=== PATIENT | male | born 1985 | race Caucasian/White ===

== ENCOUNTER 2022-04-06 05:46 | Emergency (ER) | payer MEDICAID ==
[~2022-04-06] VITALS: Ht 180.3 cm; Wt 81.8 kg
[~2022-04-06 05:46] MED LIST: FLOOS OT
[2022-04-06 05:51] VITALS: BP 133/85
--- NOTE | 2022-04-06 06:33 | NUR ---
DR PETERS SPEAKING WITH PT AT THIS TIME
[2022-04-06] MEDS ORDERED: LIDOcaine 1% W/epiNEPHrine 1:100,000 20ml vial SQ ONE (06:35)
== END 2022-04-06 09:35 | disposition home or self-care (01) ==
LOC: ER 05:47
DX: S63.111A Subluxation of metacarpophalangeal joint of right thumb, initial encounter (principal); X58.XXXA Exposure to other specified factors, initial encounter; Y93.89 Activity, other specified; Y92.89 Other specified places as the place of occurrence of the external cause; Y99.8 Other external cause status
CPT/HCPCS: 73130; 99283

== ENCOUNTER 2022-04-27 17:26 | Emergency (ER) | payer MEDICAID ==
[~2022-04-27] VITALS: Ht 180.3 cm; Wt 81.8 kg
[2022-04-27 17:35] VITALS: BP 114/85
[2022-04-27] MEDS ORDERED: TETanus/Pertussis (Acell)/Diphther VAC/PF (Tdap-Adult) 0.5ml syringe IMVAC ONE (17:35)
[2022-04-27] MEDS ORDERED: AMOX-117 PO (17:38)
== END 2022-04-27 17:45 ==
LOC: ER 17:26
DX: S41.132A Puncture wound without foreign body of left upper arm, initial encounter (principal); Z91.19 Patient's noncompliance with other medical treatment and regimen; W54.0XXA Bitten by dog, initial encounter; Z79.2 Long term (current) use of antibiotics; Z79.899 Other long term (current) drug therapy; Y93.89 Activity, other specified; Y92.89 Other specified places as the place of occurrence of the external cause; Y99.8 Other external cause status
CPT/HCPCS: 90471; 90715; 99283

== ENCOUNTER 2022-05-10 18:11 | Emergency (ER) | payer MEDICAID | END 2022-05-10 23:16 | disposition home or self-care (01) | LOC: ER 18:11 | DX: S69.90XA Unspecified injury of unspecified wrist, hand and finger(s), initial encounter (principal); Z53.21 Procedure and treatment not carried out due to patient leaving prior to being seen by health care provider; X58.XXXA Exposure to other specified factors, initial encounter; Y93.89 Activity, other specified; Y92.89 Other specified places as the place of occurrence of the external cause; Y99.8 Other external cause status ==

== ENCOUNTER 2022-10-18 17:36 | Emergency (ER) | payer MEDICAID ==
[~2022-10-18] VITALS: Ht 180.3 cm; Wt 79.5 kg
[2022-10-18 17:47] VITALS: BP 125/87
== END 2022-10-18 21:20 | disposition home or self-care (01) ==
LOC: ER 17:37
DX: Z48.89 Encounter for other specified surgical aftercare (principal); R10.9 Unspecified abdominal pain; Z98.890 Other specified postprocedural states; Z79.2 Long term (current) use of antibiotics
CPT/HCPCS: 99281; A6253

== ENCOUNTER 2023-05-10 21:51 | Emergency (ER) | payer MEDICAID ==
[~2023-05-10] VITALS: Ht 182.9 cm; Wt 84.1 kg
[2023-05-10 22:13] VITALS: BP 125/68
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
== END 2023-05-10 23:06 | disposition home or self-care (01) ==
LOC: ER 21:52
DX: T85.848A Pain due to other internal prosthetic devices, implants and grafts, initial encounter (principal); Z46.89 Encounter for fitting and adjustment of other specified devices
CPT/HCPCS: 99283; A4398; A6250

== ENCOUNTER 2023-07-05 12:30 | Inpatient (IN) | payer MEDICAID ==
[~2023-07-05] VITALS: Ht 182.9 cm; Wt 72.7 kg
[2023-07-05 15:20] LABS: BASOPHILS % (AUTO) 0.4 % (0-1); EOSINOPHILS # (AUTO) 0.1 X10'3 (0-0.9); EOSINOPHILS % (AUTO) 1.3 % (0-6); HEMATOCRIT 48.4 % (42.0-52.0); HEMOGLOBIN 15.8 g/dl (14.0-17.9); LYMPHOCYTES # (AUTO) 3.3 X10'3 (1.1-4.8); LYMPHOCYTES % (AUTO) 31.3 % (21-51); MEAN CORPUSCULAR HGB CONC 32.6 g/dL (33.0-36.5); MEAN CORPUSCULAR VOLUME 85.8 FL (78-98); MEAN PLATELET VOLUME 8.4 FL (7.4-10.4); MONOCYTES # (AUTO) 1.4 X10'3 (0-0.9); MONOCYTES % (AUTO) 13.3 % (2-12); NEUTROPHILS # (AUTO) 5.6 X10'3 (1.8-7.7); NEUTROPHILS % (AUTO) 53.7 % (42-75); PLATELET COUNT 288 X10'3 (140-440); RED BLOOD COUNT 5.64 X10'6 (4.70-6.10); RED CELL DISTRIBUTION WIDTH 16.1 % (11.5-14.5); WHITE BLOOD COUNT 10.5 X10'3 (4.5-11.0)
--- NOTE | 2023-07-05 15:45 | NUR ---
Pt continues to answer medical questions and does not move when physically assessing pt. When pts room left pt takes off BP cuff and pulse ox.
[2023-07-05] MEDS ORDERED: methadone 10mg tablet PO ONE (16:20)
--- NOTE | 2023-07-05 17:00 | NUR ---
Pt linen and clothing changed after skin cleansed. Colostomy appliance place on ostomy site.
[2023-07-05] MEDS ORDERED: HYDROcodone/acetaminophen 5mg/325mg tablet PO PRN (18:10)
[2023-07-05] MEDS ORDERED: ondansetron/PF 4mg/2ml inj IV PRN (18:10)
[2023-07-05] MEDS ORDERED: acetaminophen 650mg rectal suppository RC PRN (18:10)
[2023-07-05] MEDS ORDERED: mag hydrox/Alum hydrox/simeth 30ml oral suspension PO PRN (18:10)
[2023-07-05] MEDS ORDERED: acetaminophen 325mg tablet PO PRN ×2 (18:10)
[2023-07-05] MEDS ORDERED: HYDROmorphone/PF 0.2 MG/ML SYRINGE IV PRN (18:10)
[2023-07-05 18:54] LABS: ALANINE AMINOTRANSFERASE 26 U/L (12-78); ALBUMIN 3.5 G/DL (3.4-5.0); ALBUMIN/GLOBULIN RATIO 0.9 (1.1-1.5); ALKALINE PHOSPHATASE 101 IU/L (46-116); ANION GAP 7 (8-16); ASPARTATE AMINO TRANSFERASE 23 U/L (10-37); BLOOD UREA NITROGEN 22 MG/DL (7-18); BUN/CREATININE RATIO 20.2 (10.0-20.0); CHLORIDE 102 MMOL/L (99-107); CREATININE 1.09 MG/DL (0.60-1.10); GLUCOSE 74 MG/DL (70-104); POTASSIUM 3.4 MMOL/L (3.5-5.1); SODIUM 139 MMOL/L (135-145); TOTAL CARBON DIOXIDE 29.6 MMOL/L (24-32); TOTAL PROTEIN 7.5 G/DL (6.4-8.2); eCRCL 96 ML/MIN; eGFR 77 ML/MIN
[2023-07-05 19:02] LABS: THYROID STIMULATING HORMONE 1.76 ulU/ml (0.34-4.50)
[2023-07-05 19:14] LABS: ETHANOL < 10 MG/DL (<10)
[2023-07-05] MEDS: docusate sod 100mg capsule PO SCH (20:00)
--- NOTE | 2023-07-05 20:08 | NUR ---
DR HALL REPEATEDLY MADE AWARE BY DAY AND NOC NURSE THAT PT IS IN AFIB. NO NEW ORDERS
--- NOTE | 2023-07-05 22:05 | NUR ---
PER DR GARY, MARIA LUISA TO DELAY COLLECTION OF URINE SAMPLE UNTIL PT IS COOPERATIVE AND WILLING TO GIVE
[2023-07-05 23:15] VITALS: BP 113/69; PULSE 72; RESP 20; TEMP 98; O2SAT 99
--- NOTE | 2023-07-05 23:20 | NUR ---
PATIENT ADMITTED TO ROOM 4020A FROM ER FOR COLOSTOMY COMPLICATION, SUBSTANCE ABUSE AND ALOC.
[2023-07-05 23:55] VITALS: RESP 20; O2SAT 99
[2023-07-06 06:30] VITALS: BP 122/80; PULSE 117; RESP 16; TEMP 98.1; O2SAT 99
--- NOTE | 2023-07-06 06:30 | NUR ---
Problems reprioritized. Patient report given, questions answered & plan of care reviewed with LOUIS HUTCHINS.
[2023-07-06 06:53] LABS: BASOPHILS % (AUTO) 0.3 % (0-1); EOSINOPHILS # (AUTO) 0.2 X10'3 (0-0.9); EOSINOPHILS % (AUTO) 2.1 % (0-6); HEMATOCRIT 49.8 % (42.0-52.0); HEMOGLOBIN 16.7 g/dl (14.0-17.9); LYMPHOCYTES # (AUTO) 2.3 X10'3 (1.1-4.8); LYMPHOCYTES % (AUTO) 24.3 % (21-51); MEAN CORPUSCULAR HEMOGLOBIN 28.7 PG (27.0-31.0); MEAN CORPUSCULAR HGB CONC 33.5 g/dL (33.0-36.5); MEAN CORPUSCULAR VOLUME 85.5 FL (78-98); MEAN PLATELET VOLUME 8.9 FL (7.4-10.4); MONOCYTES # (AUTO) 0.9 X10'3 (0-0.9); MONOCYTES % (AUTO) 9.5 % (2-12); NEUTROPHILS # (AUTO) 5.9 X10'3 (1.8-7.7); NEUTROPHILS % (AUTO) 63.8 % (42-75); PLATELET COUNT 317 X10'3 (140-440); RED BLOOD COUNT 5.83 X10'6 (4.70-6.10); RED CELL DISTRIBUTION WIDTH 15.7 % (11.5-14.5); WHITE BLOOD COUNT 9.3 X10'3 (4.5-11.0)
[2023-07-06 07:06] LABS: ALBUMIN 3.4 G/DL (3.4-5.0); ANION GAP 8 (8-16); BILIRUBIN,TOTAL 1.1 MG/DL (0.1-1.0); BLOOD UREA NITROGEN 19 MG/DL (7-18); BUN/CREATININE RATIO 18.4 (10.0-20.0); CHLORIDE 101 MMOL/L (99-107); CREATININE 1.03 MG/DL (0.60-1.10); GLUCOSE 89 MG/DL (70-104); SODIUM 135 MMOL/L (135-145); TOTAL CARBON DIOXIDE 26.5 MMOL/L (24-32); TOTAL PROTEIN 7.5 G/DL (6.4-8.2); eCRCL 102 ML/MIN; eGFR 82 ML/MIN
[2023-07-06 07:07] LABS: ALANINE AMINOTRANSFERASE 30 U/L (12-78); ALBUMIN/GLOBULIN RATIO 0.8 (1.1-1.5); ALKALINE PHOSPHATASE 93 IU/L (46-116); ASPARTATE AMINO TRANSFERASE 29 U/L (10-37)
[2023-07-06 07:08] LABS: POTASSIUM 3.7 MMOL/L (3.5-5.1)
[2023-07-06 08:00] VITALS: RESP 16; O2SAT 99
[2023-07-06] MEDS: docusate sod 100mg capsule PO SCH ×2 (08:04→20:00)
[2023-07-06] MEDS: HYDROmorphone inj. 0.5 MG/0.5 ML DISP.SYRIN IV PRN ×4 (08:08→22:42)
[2023-07-06 10:00] VITALS: BP 127/86; PULSE 85; RESP 16; TEMP 97.4; O2SAT 100
[2023-07-06] MEDS: HYDROcodone/acetaminophen 10/325mg tab PO PRN ×2 (11:06→16:14)
--- NOTE | 2023-07-06 11:16 | NUR ---
PRESSURE ULCER EDUCATION: DEFINITION: A pressure ulcer is an area of skin that breaks down when you stay in one position too long. The constant pressure against the skin reduces the blood flow to that area and the affected tissue dies. CAUSES: "Being bedridden or in a wheelchair "Fragile skin "Having a chronic condition, such as diabetes or vascular disease "Inability to move certain parts of your body without assistance "Older age "Incontinence of urine or stool SYMPTOMS: "A reddened area that DOES NOT turn white when pressed on - this can be the beginning of a pressure ulcer "A blister, deep sore or a crater - these can be advanced pressure ulcers FIRST AID: "Relieve the pressure on this area "Keep the area clean and dry "Call your primary doctor if you see any of the above symptoms "DO NOT massage the area "DO NOT use a donut shaped or ring shaped pillow- these actually interfere with the blood flow and cause complications PREVENTION: "Check for pressure ulcers everyday "Change position at least every two hours to relieve pressure "Use items that help relieve pressure- pillows, sheepskin, foam padding, and powders. "Keep skin clean and dry "Eat healthy well balanced meals "Exercise daily IF YOU SEE ANY OF THESE SYMPTOMS WHILE IN THE HOSPITAL - TELL YOUR NURSE IMMEDIATELY. IF YOU SEE ANY OF THESE SYMPTOMS WHILE AT HOME OR HAVE ANY QUESTIONS OR CONCERNS ABOUT PRESSURE ULCERS - CALL YOUR PRIMARY DOCTOR IMMEDIATELY. Addendum: 07/06/23 at 1117 by Wolfgang Montgomery RN Amended: Links added.
[2023-07-06] MEDS ORDERED: ZOLP5TAB8 PO (13:01)
[2023-07-06] MEDS ORDERED: GABA300C PO (13:01)
[2023-07-06] MEDS ORDERED: HYDR-3972 PO (13:01)
[2023-07-06] MEDS ORDERED: METH-806 PO (13:05)
[2023-07-06 18:00] VITALS: BP 99/68; PULSE 80; RESP 17; TEMP 98.2; O2SAT 99
--- NOTE | 2023-07-06 18:16 | NUR ---
Problems reprioritized. Patient report given, questions answered & plan of care reviewed with Geovanna.
--- NOTE | 2023-07-06 18:30 | NUR ---
Patient in room ORTHO 4020. I have received report from LOUIS HUTCHINS and had the opportunity to ask questions and assume patient care.
[2023-07-06 20:00] VITALS: RESP 18; O2SAT 95
[2023-07-06 22:00] VITALS: BP 98/62; PULSE 75; RESP 16; TEMP 97.8; O2SAT 100
[2023-07-07] MEDS: HYDROcodone/acetaminophen 10/325mg tab PO PRN ×2 (02:15→07:47)
[2023-07-07] MEDS: HYDROmorphone inj. 0.5 MG/0.5 ML DISP.SYRIN IV PRN ×2 (04:18→09:53)
--- NOTE | 2023-07-07 06:28 | NUR ---
Patient in room ORTHO 4020. I have received report from Geovanna and had the opportunity to ask questions and assume patient care.
--- NOTE | 2023-07-07 06:28 | NUR ---
Problems reprioritized. Patient report given, questions answered & plan of care reviewed with JOSEFINA GAO.
[2023-07-07 06:30] VITALS: BP 108/88; PULSE 82; RESP 18; TEMP 98.1; O2SAT 98
[2023-07-07 07:11] LABS: BASOPHILS % (AUTO) 0.3 % (0-1); EOSINOPHILS # (AUTO) 0.1 X10'3 (0-0.9); EOSINOPHILS % (AUTO) 1.5 % (0-6); HEMATOCRIT 52.1 % (42.0-52.0); HEMOGLOBIN 17.5 g/dl (14.0-17.9); LYMPHOCYTES # (AUTO) 2.9 X10'3 (1.1-4.8); LYMPHOCYTES % (AUTO) 36.7 % (21-51); MEAN CORPUSCULAR HEMOGLOBIN 28.5 PG (27.0-31.0); MEAN CORPUSCULAR HGB CONC 33.6 g/dL (33.0-36.5); MEAN CORPUSCULAR VOLUME 84.9 FL (78-98); MEAN PLATELET VOLUME 9.3 FL (7.4-10.4); MONOCYTES # (AUTO) 0.7 X10'3 (0-0.9); MONOCYTES % (AUTO) 8.4 % (2-12); NEUTROPHILS # (AUTO) 4.2 X10'3 (1.8-7.7); NEUTROPHILS % (AUTO) 53.1 % (42-75); PLATELET COUNT 329 X10'3 (140-440); RED BLOOD COUNT 6.13 X10'6 (4.70-6.10); RED CELL DISTRIBUTION WIDTH 15.6 % (11.5-14.5); WHITE BLOOD COUNT 7.9 X10'3 (4.5-11.0)
[2023-07-07 07:20] LABS: ALANINE AMINOTRANSFERASE 30 U/L (12-78); ALBUMIN 3.4 G/DL (3.4-5.0); ALBUMIN/GLOBULIN RATIO 0.8 (1.1-1.5); ALKALINE PHOSPHATASE 97 IU/L (46-116); ANION GAP 8 (8-16); ASPARTATE AMINO TRANSFERASE 18 U/L (10-37); BILIRUBIN,TOTAL 0.6 MG/DL (0.1-1.0); BLOOD UREA NITROGEN 17 MG/DL (7-18); BUN/CREATININE RATIO 17.2 (10.0-20.0); CALCIUM 9.1 MG/DL (8.5-10.1); CHLORIDE 101 MMOL/L (99-107); CREATININE 0.99 MG/DL (0.60-1.10); GLUCOSE 92 MG/DL (70-104); POTASSIUM 3.8 MMOL/L (3.5-5.1); SODIUM 134 MMOL/L (135-145); TOTAL CARBON DIOXIDE 25.1 MMOL/L (24-32); TOTAL PROTEIN 7.6 G/DL (6.4-8.2); eCRCL 106 ML/MIN; eGFR 86 ML/MIN
[2023-07-07] MEDS: docusate sod 100mg capsule PO SCH (07:47)
[2023-07-07 08:30] VITALS: RESP 18; O2SAT 98
--- NOTE | 2023-07-07 10:54 | NUR ---
PAGER ID: [phone] MESSAGE: RE: [id number] patient wishes to leave [facility]
--- NOTE | 2023-07-07 11:03 | NUR ---
Patient has repeatedly made unkind comments to the family in 4020B, "stating F you", he has been demanding and verbalizes sounds/comments if his needs aren't tended to immediately. His ostomy was completely changed per patient's specifications and the wound dressing was changed also to the patient's specifications. Patient has attempted to empty the ostomy and purposely created an unsanitary condition in the shared restroom. Patient has continued to complain that he "is not receiving the care he needs" but will not assist with tending to his own needs. Patient was up and walking around nude, walking over into the "B" bed area. Patient has continued to request pain medication, snacks, clothing, shoes, ostomy supplies, tape. dried yeast supervisor confirmed the ostomy was not leaking and the new dressing was secure. Patient opted to leave [facility]. Hospitalist had been paged.
--- NOTE | 2023-07-07 11:12 | NUR ---
PAGER ID: [phone] MESSAGE: RE: [id number], patient left AMA, form signed Vicky
== END 2023-07-07 11:08 | disposition left against medical advice (07) | DRG 813 ==
LOC: ER 12:30 → ED HOLD 18:38 → UNDOADMIN 18:38 → ED HOLD 20:15 → ORTHO 4S 07-06 00:22
PROVIDERS: ADMIT Internal Medicine; ATTEND Internal Medicine
DX: T81.30XA Disruption of wound, unspecified, initial encounter (principal); F11.23 Opioid dependence with withdrawal; Z53.29 Procedure and treatment not carried out because of patient's decision for other reasons; Y83.3 Surgical operation with formation of external stoma as the cause of abnormal reaction of the patient, or of later complication, without mention of misadventure at the time of the procedure; I48.91 Unspecified atrial fibrillation; Z93.3 Colostomy status; Y92.89 Other specified places as the place of occurrence of the external cause
CPT/HCPCS: 36415; 80053; 80320; 84443; 85025; 87070; 87075; 87077; 87081; 87186; 93005; 99285; A4421; A6449; C1758; G0378; J1170

== ENCOUNTER 2023-10-14 05:25 | Inpatient (IN) | payer MEDICAID, OTHER ==
[~2023-10-14] VITALS: Ht 182.9 cm; Wt 80.1 kg
[~2023-10-14 05:25] MED LIST changes: -FLOOS OT; +GABA300C PO; +HYDR-3972 PO; +METH-806 PO; +ZOLP5TAB8 PO
[2023-10-14 06:00] LABS: EOSINOPHILS # (AUTO) 0.2 X10'3 (0-0.9)
[2023-10-14 06:04] LABS: BASOPHILS % (AUTO) 0.4 % (0-1); EOSINOPHILS % (AUTO) 1.8 % (0-6); HEMATOCRIT 47.3 % (42.0-52.0); HEMOGLOBIN 15.9 g/dl (14.0-17.9); LYMPHOCYTES # (AUTO) 3.7 X10'3 (1.1-4.8); LYMPHOCYTES % (AUTO) 40.8 % (21-51); MEAN CORPUSCULAR HEMOGLOBIN 29.2 PG (27.0-31.0); MEAN CORPUSCULAR HGB CONC 33.5 g/dL (33.0-36.5); MEAN CORPUSCULAR VOLUME 86.9 FL (78-98); MEAN PLATELET VOLUME 7.7 FL (7.4-10.4); MONOCYTES # (AUTO) 0.7 X10'3 (0-0.9); MONOCYTES % (AUTO) 7.9 % (2-12); NEUTROPHILS # (AUTO) 4.4 X10'3 (1.8-7.7); NEUTROPHILS % (AUTO) 49.1 % (42-75); PLATELET COUNT 269 X10'3 (140-440); RED BLOOD COUNT 5.44 X10'6 (4.70-6.10); RED CELL DISTRIBUTION WIDTH 15.2 % (11.5-14.5)
[2023-10-14 06:07] LABS: ALANINE AMINOTRANSFERASE 95 U/L (12-78); ALBUMIN 3.7 G/DL (3.4-5.0); ALKALINE PHOSPHATASE 106 IU/L (46-116); ANION GAP 8 (8-16); ASPARTATE AMINO TRANSFERASE 35 U/L (10-37); BLOOD UREA NITROGEN 15 MG/DL (7-18); BUN/CREATININE RATIO 12.3 (10.0-20.0); CALCIUM 9.1 MG/DL (8.5-10.1); CHLORIDE 106 MMOL/L (99-107); CREATININE 1.22 MG/DL (0.60-1.10); GLUCOSE 94 MG/DL (70-104); POTASSIUM 4.7 MMOL/L (3.5-5.1); SODIUM 140 MMOL/L (135-145); TOTAL PROTEIN 7.5 G/DL (6.4-8.2); eCRCL 92 ML/MIN; eGFR 67 ML/MIN
[2023-10-14 06:15] LABS: LIPASE 69 U/L (16-77); PRO BRAIN NATRIURETIC PEPTIDE < 30 PG/ML (0-125)
[2023-10-14] MEDS ORDERED: enoxaparin 100mg/ml syringe SUBCUT ONE (06:55)
[2023-10-14] MEDS ORDERED: aspirin 81mg tab.chew PO ONE (06:55)
[2023-10-14] MEDS ORDERED: enoxaparin 80mg/0.8ml syringe SUBCUT ONE (06:55)
[2023-10-14 08:32] LABS: BILIRUBIN,URINE NEGATIVE (Neg); CLARITY,URINE CLEAR (Clear); COLOR,URINE YELLOW (Yellow); GLUCOSE, URINE NEGATIVE (Neg); KETONES,URINE NEGATIVE (Neg); LEUKOCYTE ESTERASE ,URINE NEGATIVE (Neg); NITRITES, URINE NEGATIVE (Neg); OCCULT BLOOD,URINE NEGATIVE (Neg); PROTEIN,URINE NEGATIVE (Neg); UROBILINOGEN,URINE 0.2 E.U/dL (0.2-1.0)
[2023-10-14 08:43] LABS: UA COLLECTION TYPE CLN CATCH MIDSTREAM
[2023-10-14] MEDS ORDERED: mag hydrox/Alum hydrox/simeth 30ml oral suspension PO PRN (12:05)
[2023-10-14] MEDS ORDERED: regadenoson 0.4mg/5ml syringe IV PRN (12:05)
[2023-10-14] MEDS ORDERED: nitroGLYCERIN 0.4mg SUBLingual tab SL PRN (12:05)
[2023-10-14] MEDS ORDERED: HYDROcodone/acetaminophen 5mg/325mg tablet PO PRN (12:05)
[2023-10-14] MEDS ORDERED: acetaminophen 325mg tablet PO PRN ×2 (12:05)
[2023-10-14] MEDS ORDERED: ondansetron/PF 4mg/2ml inj IV PRN (12:05)
[2023-10-14] MEDS ORDERED: magnesium hydroxide 30ml (MOM) UD suspension PO PRN (12:05)
[2023-10-14] MEDS ORDERED: metoprolol tartrate 1mg/ml inj IV PRN (12:05)
[2023-10-14 12:31] LABS: PRO BRAIN NATRIURETIC PEPTIDE < 30 PG/ML (0-125)
[2023-10-14] MEDS: HYDROcodone/acetaminophen 10/325mg tab PO PRN ×3 (12:39→21:21)
[2023-10-14 13:37] VITALS: BP 123/82; PULSE 76; RESP 14; TEMP 98.1; O2SAT 100
[2023-10-14 14:44] VITALS: RESP 18
[2023-10-14] MEDS: morphine 2 MG/ML inj. syringe IV PRN (14:46)
[2023-10-14 15:08] VITALS: BP 148/52; PULSE 74; RESP 14; TEMP 98; O2SAT 98
[2023-10-14 18:00] VITALS: BP 129/85; PULSE 102; RESP 18; TEMP 98.3; O2SAT 100
[2023-10-14] MEDS: diphenhydrAMINE 25mg capsule PO PRN (19:19)
[2023-10-14] MEDS: docusate sod 100mg capsule PO SCH (19:24)
[2023-10-14 20:00] VITALS: RESP 18; O2SAT 100
[2023-10-14 22:00] VITALS: BP 90/48; PULSE 91; RESP 16; TEMP 98.3; O2SAT 98
[2023-10-14] MEDS ORDERED: gabapentin 400mg capsule PO SCH (22:15)
[2023-10-14] MEDS: gabapentin 300mg capsule PO SCH (22:35)
[2023-10-14] MEDS: zolpidem 5mg tablet PO PRN (22:35)
[2023-10-15] VITALS (27 sets, daily range): BP systolic 76–135; BP diastolic 43–89; PULSE 64–151; RESP 12–26; TEMP 97.5–98.7; O2SAT 96–100
[2023-10-15] MEDS: morphine 2 MG/ML inj. syringe IV PRN ×3 (00:56→20:12)
[2023-10-15 07:21] LABS: BASOPHILS % (AUTO) 0.3 % (0-1); EOSINOPHILS # (AUTO) 0.2 X10'3 (0-0.9); EOSINOPHILS % (AUTO) 2.1 % (0-6); HEMOGLOBIN 15.1 g/dl (14.0-17.9); LYMPHOCYTES # (AUTO) 2.6 X10'3 (1.1-4.8); LYMPHOCYTES % (AUTO) 30.3 % (21-51); MEAN CORPUSCULAR HGB CONC 32.8 g/dL (33.0-36.5); MEAN CORPUSCULAR VOLUME 88.2 FL (78-98); MEAN PLATELET VOLUME 8.2 FL (7.4-10.4); MONOCYTES # (AUTO) 0.5 X10'3 (0-0.9); MONOCYTES % (AUTO) 6.2 % (2-12); NEUTROPHILS # (AUTO) 5.3 X10'3 (1.8-7.7); NEUTROPHILS % (AUTO) 61.1 % (42-75); PLATELET COUNT 242 X10'3 (140-440); RED BLOOD COUNT 5.22 X10'6 (4.70-6.10); RED CELL DISTRIBUTION WIDTH 15.3 % (11.5-14.5); WHITE BLOOD COUNT 8.6 X10'3 (4.5-11.0)
[2023-10-15] MEDS: docusate sod 100mg capsule PO SCH ×2 (07:35→19:19)
[2023-10-15] MEDS: HYDROcodone/acetaminophen 10/325mg tab PO PRN ×3 (07:36→22:24)
[2023-10-15] MEDS ORDERED: gabapentin 300mg capsule PO ONE (07:45)
[2023-10-15 07:48] LABS: ANION GAP 5 (8-16); BLOOD UREA NITROGEN 19 MG/DL (7-18); BUN/CREATININE RATIO 15.7 (10.0-20.0); CALCIUM 8.4 MG/DL (8.5-10.1); CHLORIDE 108 MMOL/L (99-107); CREATININE 1.21 MG/DL (0.60-1.10); GLUCOSE 90 MG/DL (70-104); POTASSIUM 4.3 MMOL/L (3.5-5.1); SODIUM 140 MMOL/L (135-145); TOTAL CARBON DIOXIDE 26.6 MMOL/L (24-32); eCRCL 93 ML/MIN; eGFR 68 ML/MIN
[2023-10-15] MEDS: aminophylline 250mg/10ml inj. IV PRN ×2 (11:30→11:34)
[2023-10-15] MEDS: gabapentin 300mg capsule PO SCH ×2 (13:00→19:19)
[2023-10-15 15:32] LABS: CHOL/HDL RATIO 2.5 (0.00-4.99); CHOLESTEROL 117 MG/DL (0-200); HDL CHOLESTEROL 47 MG/DL (35-60); LDL CHOLESTEROL 58 MG/DL (50-100); TRIGLYCERIDES 79 MG/DL (20-135)
[2023-10-15] MEDS: metoprolol tartrate 50mg tablet PO SCH (19:19)
[2023-10-15] MEDS: zolpidem 5mg tablet PO PRN (19:19)
[2023-10-15] MEDS: diphenhydrAMINE 25mg capsule PO PRN (19:19)
[2023-10-16] MEDS: morphine 2 MG/ML inj. syringe IV PRN ×3 (01:40→11:13)
[2023-10-16] MEDS: diphenhydrAMINE 25mg capsule PO PRN (01:45)
[2023-10-16] MEDS: HYDROcodone/acetaminophen 10/325mg tab PO PRN (05:37)
[2023-10-16 07:04] VITALS: BP 144/68; PULSE 99; RESP 18; TEMP 97.8; O2SAT 96
[2023-10-16] MEDS: gabapentin 300mg capsule PO SCH ×2 (07:08→12:56)
[2023-10-16] MEDS: metoprolol tartrate 50mg tablet PO SCH (07:08)
[2023-10-16 07:28] LABS: BASOPHILS % (AUTO) 0.4 % (0-1); EOSINOPHILS # (AUTO) 0.1 X10'3 (0-0.9); EOSINOPHILS % (AUTO) 1.3 % (0-6); HEMATOCRIT 47.1 % (42.0-52.0); LYMPHOCYTES # (AUTO) 0.9 X10'3 (1.1-4.8); LYMPHOCYTES % (AUTO) 12.8 % (21-51); MEAN CORPUSCULAR HEMOGLOBIN 29.5 PG (27.0-31.0); MEAN CORPUSCULAR VOLUME 86.8 FL (78-98); MEAN PLATELET VOLUME 8.2 FL (7.4-10.4); MONOCYTES # (AUTO) 0.6 X10'3 (0-0.9); MONOCYTES % (AUTO) 8.3 % (2-12); NEUTROPHILS # (AUTO) 5.7 X10'3 (1.8-7.7); NEUTROPHILS % (AUTO) 77.2 % (42-75); PLATELET COUNT 199 X10'3 (140-440); RED BLOOD COUNT 5.43 X10'6 (4.70-6.10); RED CELL DISTRIBUTION WIDTH 15.2 % (11.5-14.5); WHITE BLOOD COUNT 7.3 X10'3 (4.5-11.0)
[2023-10-16 08:00] VITALS: RESP 16; O2SAT 96
[2023-10-16] MEDS ORDERED: aspirin 325mg tablet, delayed-release (Ecotrin) PO SCH (08:00)
[2023-10-16] MEDS: docusate sod 100mg capsule PO SCH (08:00)
[2023-10-16 08:09] LABS: HEMOGLOBIN A1C 5.5 % (4.5-6.2)
[2023-10-16 08:20] LABS: ALBUMIN 3.2 G/DL (3.4-5.0); ANION GAP 11 (8-16); BLOOD UREA NITROGEN 13 MG/DL (7-18); BUN/CREATININE RATIO 11.6 (10.0-20.0); CALCIUM 8.5 MG/DL (8.5-10.1); CHLORIDE 103 MMOL/L (99-107); CREATININE 1.12 MG/DL (0.60-1.10); GLUCOSE 105 MG/DL (70-104); SODIUM 136 MMOL/L (135-145); TOTAL CARBON DIOXIDE 22.1 MMOL/L (24-32); eCRCL 100 ML/MIN; eGFR 74 ML/MIN
[2023-10-16 11:50] VITALS: BP 109/80; PULSE 83; RESP 16; TEMP 97.6; O2SAT 95
[2023-10-16] MEDS ORDERED: ACET-1008 PO (12:08)
[2023-10-16] MEDS ORDERED: LOP25T PO (12:08)
[2023-10-16] MEDS ORDERED: NAPR-996 PO (12:08)
[2023-10-16] MEDS ORDERED: ASPI-1071 PO (12:08)
[2023-10-16] MEDS ORDERED: NYSPWD TP (12:08)
[2023-10-16 12:13] VITALS: RESP 14
[2023-10-16] MEDS ORDERED: metoprolol tartrate 25mg tablet PO SCH (20:00)
== END 2023-10-16 13:20 | DRG 206 ==
LOC: ER 05:26 → EEVIPCON 05:26 → ED HOLD 12:05 → PCU 3S 12:47
PROVIDERS: ADMIT Internal Medicine; ATTEND Internal Medicine
PROC: 4A02XM4 Measurement of Cardiac Total Activity, External Approach (ICD-10-PCS; principal; 2023-10-15)
PROC: 3E033HZ Introduction of Radioactive Substance into Peripheral Vein, Percutaneous Approach (ICD-10-PCS; 2023-10-15)
DX: M94.0 Chondrocostal junction syndrome [Tietze] (principal); K21.9 Gastro-esophageal reflux disease without esophagitis; G47.00 Insomnia, unspecified; G62.9 Polyneuropathy, unspecified; I10 Essential (primary) hypertension; F19.10 Other psychoactive substance abuse, uncomplicated; I95.9 Hypotension, unspecified; F17.210 Nicotine dependence, cigarettes, uncomplicated; R10.13 Epigastric pain; Z79.82 Long term (current) use of aspirin; Z79.899 Other long term (current) drug therapy; Z90.49 Acquired absence of other specified parts of digestive tract; Z86.14 Personal history of Methicillin resistant Staphylococcus aureus infection; Z93.3 Colostomy status; Z71.51 Drug abuse counseling and surveillance of drug abuser; Z71.6 Tobacco abuse counseling; I48.91 Unspecified atrial fibrillation
CPT/HCPCS: 36415; 71045; 78452; 80048; 80053; 80061; 81003; 83036; 83605; 83690; 83880; 84145; 84443; 84484; 85025; 87081; 93005; 93017; 93306; 99285; A4421; A4649; A6223; A6258; A6449; A9500; G0378; J0280; J1650; J2270; J2405; J2785; J7030; Q0163

== ENCOUNTER 2023-10-24 23:18 | Emergency (ER) | payer OTHER ==
[~2023-10-24] VITALS: Ht 182.9 cm; Wt 84.1 kg
[~2023-10-24 23:18] MED LIST changes: +ACET-1008 PO; +ASPI-1071 PO; +LOP25T PO; +NAPR-996 PO; +NYSPWD TP
[2023-10-24 23:49] LABS: BASOPHILS % (AUTO) 0.3 % (0-1); EOSINOPHILS # (AUTO) 0.1 X10'3 (0-0.9); EOSINOPHILS % (AUTO) 1.6 % (0-6); HEMATOCRIT 46.6 % (42.0-52.0); HEMOGLOBIN 15.7 g/dl (14.0-17.9); LYMPHOCYTES # (AUTO) 3.2 X10'3 (1.1-4.8); LYMPHOCYTES % (AUTO) 36.2 % (21-51); MEAN CORPUSCULAR HEMOGLOBIN 29.1 PG (27.0-31.0); MEAN CORPUSCULAR HGB CONC 33.8 g/dL (33.0-36.5); MEAN CORPUSCULAR VOLUME 86.3 FL (78-98); MEAN PLATELET VOLUME 7.3 FL (7.4-10.4); MONOCYTES # (AUTO) 0.7 X10'3 (0-0.9); MONOCYTES % (AUTO) 7.5 % (2-12); NEUTROPHILS # (AUTO) 4.8 X10'3 (1.8-7.7); NEUTROPHILS % (AUTO) 54.4 % (42-75); PLATELET COUNT 265 X10'3 (140-440); RED CELL DISTRIBUTION WIDTH 15.2 % (11.5-14.5); WHITE BLOOD COUNT 8.9 X10'3 (4.5-11.0)
[2023-10-25 00:06] LABS: ALANINE AMINOTRANSFERASE 81 U/L (12-78); ALBUMIN 3.4 G/DL (3.4-5.0); ALBUMIN/GLOBULIN RATIO 0.9 (1.1-1.5); ALKALINE PHOSPHATASE 93 IU/L (46-116); ANION GAP 8 (8-16); ASPARTATE AMINO TRANSFERASE 33 U/L (10-37); BILIRUBIN,TOTAL 0.5 MG/DL (0.1-1.0); BLOOD UREA NITROGEN 14 MG/DL (7-18); BUN/CREATININE RATIO 13.5 (10.0-20.0); CALCIUM 9.1 MG/DL (8.5-10.1); CHLORIDE 105 MMOL/L (99-107); CREATININE 1.04 MG/DL (0.60-1.10); GLUCOSE 92 MG/DL (70-104); POTASSIUM 3.8 MMOL/L (3.5-5.1); SODIUM 140 MMOL/L (135-145); TOTAL CARBON DIOXIDE 27.3 MMOL/L (24-32); eCRCL 108 ML/MIN; eGFR 81 ML/MIN
[2023-10-25 00:12] LABS: PRO BRAIN NATRIURETIC PEPTIDE 45 PG/ML (0-125)
[2023-10-25 01:32] VITALS: BP 120/88; PULSE 89; RESP 16; TEMP 98.3; O2SAT 98
== END 2023-10-25 01:36 ==
LOC: ER 23:18
DX: R07.9 Chest pain, unspecified (principal); Z79.899 Other long term (current) drug therapy
CPT/HCPCS: 36415; 71045; 80053; 83880; 84484; 85025; 93005; 99284

== ENCOUNTER 2024-11-23 08:39 | Emergency (ER) | payer MEDICAID, OTHER ==
[~2024-11-23] VITALS: Ht 182.9 cm; Wt 75.9 kg
[2024-11-23 09:04] VITALS: BP 125/84; PULSE 66; RESP 16; TEMP 97.8; O2SAT 100
== END 2024-11-23 09:28 | disposition home or self-care (01) ==
LOC: ER 08:39
DX: Z43.3 Encounter for attention to colostomy (principal); I48.91 Unspecified atrial fibrillation; Z90.49 Acquired absence of other specified parts of digestive tract; Z79.82 Long term (current) use of aspirin
CPT/HCPCS: 99281; A4398; A4421

== ENCOUNTER 2024-11-24 12:21 | Emergency (ER) | payer MEDICAID ==
[~2024-11-24] VITALS: Ht 182.9 cm; Wt 75.4 kg
[2024-11-24 16:09] VITALS: BP 114/84; PULSE 60; RESP 18; TEMP 98.2; O2SAT 100
== END 2024-11-24 17:21 | disposition home or self-care (01) ==
LOC: ER 12:21
DX: Z43.3 Encounter for attention to colostomy (principal); Z79.82 Long term (current) use of aspirin; I48.91 Unspecified atrial fibrillation; Z90.49 Acquired absence of other specified parts of digestive tract
CPT/HCPCS: 99281; A4421

== ENCOUNTER 2024-11-27 18:15 | Emergency (ER) | payer MEDICAID ==
[2024-11-27 19:39] LABS: ALBUMIN 3.6 G/DL (3.4-5.0); ANION GAP 10 (8-16); BLOOD UREA NITROGEN 15 MG/DL (7-18); BUN/CREATININE RATIO 13.5 (10.0-20.0); CALCIUM 8.9 MG/DL (8.5-10.1); CHLORIDE 98 MMOL/L (99-107); CREATININE 1.11 MG/DL (0.60-1.10); GLUCOSE 91 MG/DL (70-104); POTASSIUM 3.6 MMOL/L (3.5-5.1); SODIUM 135 MMOL/L (135-145); TOTAL CARBON DIOXIDE 26.7 MMOL/L (24-32); eGFR 75 ML/MIN
[2024-11-27 19:40] LABS: BASOPHILS % (AUTO) 0.3 % (0-1); EOSINOPHILS % (AUTO) 0 % (0-6); HEMATOCRIT 47.2 % (42.0-52.0); LYMPHOCYTES # (AUTO) 1.3 X10'3 (1.1-4.8); LYMPHOCYTES % (AUTO) 12.9 % (21-51); MEAN CORPUSCULAR HEMOGLOBIN 28.1 PG (27.0-31.0); MEAN CORPUSCULAR HGB CONC 33.8 g/dL (33.0-36.5); MEAN CORPUSCULAR VOLUME 83.1 FL (78-98); MEAN PLATELET VOLUME 8.2 FL (7.4-10.4); MONOCYTES # (AUTO) 1.1 X10'3 (0-0.9); NEUTROPHILS # (AUTO) 7.6 X10'3 (1.8-7.7); NEUTROPHILS % (AUTO) 75.8 % (42-75); PLATELET COUNT 247 X10'3 (140-440); RED BLOOD COUNT 5.68 X10'6 (4.70-6.10); RED CELL DISTRIBUTION WIDTH 15.8 % (11.5-14.5)
[2024-11-27] MEDS: acetaminophen 325mg tablet PO ONE (22:45)
[2024-11-27] MEDS ORDERED: ibuprofen tablet 400 MG TABLET PO ONE (22:45)
[2024-11-27] MEDS: normal saline 1000ml 1,000 ML IV ONE (23:40)
[2024-11-27] MEDS: ketorolac trometh 15mg/ml vial 15 MG/ML ML IV ONE (23:40)
[2024-11-28] MEDS: acetaminophen 1,000mg/100ml IV 100 ML IV SCH (00:39)
[2024-11-28 03:02] LABS: BILIRUBIN,URINE NEGATIVE (Neg); CLARITY,URINE CLEAR (Clear); COLOR,URINE YELLOW (Yellow); GLUCOSE, URINE NEGATIVE (Neg); KETONES,URINE NEGATIVE (Neg); LEUKOCYTE ESTERASE ,URINE NEGATIVE (Neg); NITRITES, URINE NEGATIVE (Neg); OCCULT BLOOD,URINE NEGATIVE (Neg); PROTEIN,URINE NEGATIVE (Neg); UROBILINOGEN,URINE 0.2 E.U/dL (0.2-1.0)
[2024-11-28 03:16] LABS: UA COLLECTION TYPE URINAL
[2024-11-28 04:24] VITALS: BP 159/96; PULSE 71; RESP 14; TEMP 97.9; O2SAT 100
[2024-11-28 17:06] LABS: URINE AMPHETAMINE SCREEN POSITIVE (Neg); URINE BARBITUATE SCREEN NEGATIVE (Neg); URINE BENZODIAZEPINES SCREEN NEGATIVE (Neg); URINE CANNABINOID SCREEN POSITIVE (Neg); URINE COCAINE SCREEN NEGATIVE (Neg); URINE METHADONE SCREEN NEGATIVE (Neg); URINE OPIATE SCREEN NEGATIVE (Neg); URINE PHENCYCLIDINE SCREEN NEGATIVE (Neg)
== END 2024-11-28 04:30 | disposition home or self-care (01) ==
LOC: ER 18:16
DX: B34.9 Viral infection, unspecified (principal); R50.9 Fever, unspecified; I48.91 Unspecified atrial fibrillation; Z90.49 Acquired absence of other specified parts of digestive tract; Z79.82 Long term (current) use of aspirin; Z79.1 Long term (current) use of non-steroidal anti-inflammatories (NSAID); Z79.899 Other long term (current) drug therapy; Z20.822 Contact with and (suspected) exposure to COVID-19
CPT/HCPCS: 36415; 71045; 80048; 80305; 81003; 83605; 84145; 85025; 87040; 87502; 87503; 87811; 96361; 96374; 96375; 99285; J0131; J1885; J7030; 96365; A4371; A4421

== ENCOUNTER 2024-11-29 21:36 | Emergency (ER) | payer MEDICAID ==
[~2024-11-29] VITALS: Ht 177.8 cm; Wt 77.3 kg
[2024-11-29 21:38] VITALS: BP 155/84; PULSE 91; RESP 18; TEMP 98.4; O2SAT 99
== END 2024-11-29 22:25 | disposition left against medical advice (07) ==
LOC: ER 21:36
DX: Z93.3 Colostomy status (principal); Z53.21 Procedure and treatment not carried out due to patient leaving prior to being seen by health care provider